=== PATIENT | male | born 1945 | race Caucasian/White ===

== ENCOUNTER 2018-09-19 12:46 | Emergency (ER) | payer MEDICARE ==
[~2018-09-19] VITALS: Ht 172.7 cm; Wt 107.0 kg
[~2018-09-19 12:46] MED LIST: METO25TA35
[2018-09-19 13:26] LABS: BASOPHILS # (AUTO) 0.02 x10^3/uL (0-0.1); BASOPHILS % (AUTO) 0 % (0-1); EOSINOPHILS # (AUTO) 0.04 x10^3/uL (0-0.4); EOSINOPHILS % (AUTO) 0 % (1-7); LYMPHOCYTES # (AUTO) 1.48 x10^3/uL (1-3.4); LYMPHOCYTES % (AUTO) 10 % (22-44); MD NO; MEAN CORPUSCULAR HEMOGLOBIN 28.3 pg (27.5-34.5); MEAN CORPUSCULAR HGB CONC 32.2 g/dL (33.2-36.2); MEAN CORPUSCULAR VOLUME 87.8 fL (81-97); MEAN PLATELET VOLUME 8.1 fL (7.4-10.4); MONOCYTES # (AUTO) 1.14 x10^3/uL (0.2-0.8); MONOCYTES % (AUTO) 7 % (2-9); NEUTROPHILS # (AUTO) 12.75 x10^3/uL (1.8-6.8); NEUTROPHILS % (AUTO) 83 % (42-75); PLATELET COUNT 334 x10^3/uL (130-400); RED BLOOD COUNT 4.74 x10^6/uL (4.38-5.82); RED CELL DISTRIBUTION WIDTH 15.4 % (9.4-14.8)
[2018-09-19 13:37] LABS: ALBUMIN 3.9 g/dL (3.4-5.0); ANION GAP 7 mmol/L (5-15); CALCIUM 8.9 mg/dL (8.5-10.1); CHLORIDE 103 mmol/L (98-107)
[2018-09-19 13:39] LABS: CREATININE 2.28 mg/dL (0.7-1.3)
--- NOTE | 2018-09-19 14:58 | NUR ---
DIPLOMATIC OFFICER: PT AMBULATORY TO ED ROOM 35 FROM [facility] IN [facility] AT THIS TIME
[2018-09-19] MEDS ORDERED: BICILLIN-LA 1,200,000 UNITS/2 ML IM ONE (15:30)
[2018-09-19] MEDS ORDERED: HYDROmorphone 2 MG/ML, 1ML IM ONE (16:00)
[2018-09-19] MEDS ORDERED: DIAZEPAM 5 MG TABLET PO ONE (16:00)
[2018-09-19 16:16] LABS: MICROSCOPIC INDICATED
[2018-09-19 16:17] LABS: CULTURE INDICATED? YES
[2018-09-19] MEDS ORDERED: HYDROmorphone 1 MG/ML, 1ML VIAL ONE (16:17)
[2018-09-19] MEDS ORDERED: DIAZEPAM 5 MG TABLET ONE (16:18)
[2018-09-19 16:59] VITALS: BP 118/78
[2018-09-19 17:46] LABS: HCT (SEDRATE) 41.6 % (39.2-51.8)
== END 2018-09-19 17:49 | disposition home or self-care (01) ==
LOC: ED 15:47
DX: S33.5XXA Sprain of ligaments of lumbar spine, initial encounter (principal); S39.012A Strain of muscle, fascia and tendon of lower back, initial encounter; K02.9 Dental caries, unspecified; I10 Essential (primary) hypertension; X58.XXXA Exposure to other specified factors, initial encounter; Y93.89 Activity, other specified; Y92.89 Other specified places as the place of occurrence of the external cause; Y99.8 Other external cause status
CPT/HCPCS: 36415; 72148; 80048; 81001; 82040; 83735; 85025; 85651; 86140; 87077; 87086; 87186; 96372; 99284; J0561; J1170

== ENCOUNTER → 2020-03-25 | Outpatient (CLI) | payer MEDICARE | END | disposition home or self-care (01) | LOC: RAD 03-18 09:10 | PROVIDERS: ATTEND Nurse Practitioner Family | DX: M51.16 Intervertebral disc disorders with radiculopathy, lumbar region (principal); M48.07 Spinal stenosis, lumbosacral region; M47.26 Other spondylosis with radiculopathy, lumbar region | CPT/HCPCS: 72148 ==